=== PATIENT | female | born 1980 | race Caucasian/White ===

== ENCOUNTER 2017-06-10 07:46 | Outpatient (CLI) | payer BC ==
--- NOTE | 2017-06-10 10:35 | ULT ---
ULTRASOUND PELVIC TRANSVAGINAL WITH DOPPLER: HISTORY: Lower abdominal pain. COMPARISON: None. FINDINGS: The uterus measures 8.6 x 4.3 x 4.9 cm. Endometrial thickness is 1 cm. The right ovary measures 2.2 x 2.8 x 2.2 cm. The left ovary measures 2.2 x 4.3 x 2.6 cm. Adequate v ascular flow. There are 2 separate cystic foci within the uterine fundus. The largest measures up t o 1.5 cm. Calcified anterior and fundal fibroid is present. IMPRESSION: Myometrial cysts at the junctional zone can be seen with adenomyosis. POS: C
== END 2017-06-10 07:47 | disposition home or self-care (01) ==
LOC: ULT 07:46
DX: D25.9 Leiomyoma of uterus, unspecified (principal); R10.30 Lower abdominal pain, unspecified; N85.8 Other specified noninflammatory disorders of uterus
CPT/HCPCS: 76856

== ENCOUNTER 2019-06-08 16:02 | Outpatient (CLI) | payer BC ==
--- NOTE | 2019-06-11 13:29 | MMO ---
Bilateral MAMMO Bilat Screen [facility]. CLINICAL HISTORY: Patient is 38 years old and is seen for screening. The patient has the following family history of breast cancer: great grandmother, malignant (generic), MATERNAL and paternal grandmother, malignant (generic). The patient has no personal history of cancer. VIEWS: The views performed were: bilateral craniocaudal with tomosynthesis and bilateral mediolateral oblique with tomosynthesis. This study has been interpreted with the assistance of computer-aided detection. MAMMOGRAM FINDINGS: The breasts are heterogeneously dense, which could obscure a lesion on mammography. There are no suspicious masses, suspicious calcifications, or new areas of architectural distortion. IMPRESSION: THERE IS NO MAMMOGRAPHIC EVIDENCE OF MALIGNANCY. A ROUTINE FOLLOW-UP MAMMOGRAM IN 1 YEAR IS RECOMMENDED. THE RESULTS OF THIS EXAM WERE SENT TO THE PATIENT. ACR BI-RADS Category 1 - Negative MAMMOGRAPHY NOTE: 1. A negative mammogram report should not delay a biopsy if a dominant of clinically suspicious mass is present. 2. Approximately 10% to 15% of breast cancers are not detected by mammography. 3. Adenosis and dense breasts may obscure an underlying neoplasm. Reported by: JEAN PIERRE FRANK MD Electonically Signed: [id number]
== END 2019-06-08 16:03 | disposition home or self-care (01) ==
LOC: BICMAMMO 16:02
PROVIDERS: ATTEND Family Medicine
DX: Z12.31 Encounter for screening mammogram for malignant neoplasm of breast (principal); Z80.3 Family history of malignant neoplasm of breast
CPT/HCPCS: 77063; 77067

== ENCOUNTER 2019-12-24 12:41 | Outpatient (CLI) | payer BC ==
--- NOTE | 2019-12-24 13:36 | CT ---
CT ABDOMEN AND PELVIS WITHOUT CONTRAST: 12/24/19 PROVIDED CLINICAL HISTORY: Left upper quadrant pain. FINDINGS: Visualized lung bases are free of significant opacity. The solid abdominal organs are suboptimally evaluated in the absence of IV contrast material but demo nstrate an unremarkable unenhanced CT appearance. There is no evidence for urinary tract calculi or h ydronephrosis. The gallbladder is decompressed. The appendix appears normal. There is no bowel dilatation, inflamma tory fat stranding, free fluid, or free air apparent. No evidence for regional lymph node enlargement . Conspicuous colonic fecal retention. The osseous structures demonstrate no concerning lytic or kamilah tic lesions. IMPRESSION: 1. No evidence for urinary tract calculi or hydronephrosis. 2. Conspicuous colonic fecal retention, suggesting constipation. POS: NAVIN
== END 2019-12-24 12:42 | disposition home or self-care (01) ==
LOC: BICCT 12:41
PROVIDERS: ATTEND Family Medicine
DX: R10.12 Left upper quadrant pain (principal)
CPT/HCPCS: 74176

== ENCOUNTER 2021-11-10 09:48 | Outpatient (CLI) | payer BC | END 2021-11-10 09:49 | disposition home or self-care (01) | LOC: BICMAMMO 09:48 | PROVIDERS: ATTEND Obstetrics & Gynecology | DX: Z12.31 Encounter for screening mammogram for malignant neoplasm of breast (principal) | CPT/HCPCS: 77063; 77067 ==

== ENCOUNTER 2023-04-26 08:39 | Outpatient (CLI) | payer BC | END 2023-04-26 08:40 | disposition home or self-care (01) | LOC: BICMAMMO 08:39 | PROVIDERS: ATTEND Obstetrics & Gynecology | DX: Z12.31 Encounter for screening mammogram for malignant neoplasm of breast (principal) | CPT/HCPCS: 77063; 77067 ==